=== PATIENT | female | born 1965 ===

== ENCOUNTER 2018-06-02 10:32 | Emergency (ER) | payer OTHER ==
[~2018-06-02] VITALS: Ht 157.5 cm; Wt 79.4 kg
[~2018-06-02 10:32] MED LIST: DIOVAN160 M1; SYNTHROID125 MCG
== END 2018-06-02 17:22 | disposition home or self-care (01) ==
LOC: ER 10:32
DX: J02.8 Acute pharyngitis due to other specified organisms (principal)